=== PATIENT | female | born 1955 | race Caucasian/White ===

== ENCOUNTER → 2023-12-08 | Outpatient (CLI) | payer MEDICARE ==
[~2023-12-08] MED LIST: ALBUHFA IH; BUDE10.2 IH; D-ME118S56 PO; LEVO-70 PO; LOSA50TA64 PO; MONT-39 PO; PRED20TA3 PO
[2023-12-08 17:02] LABS: CREATININE 0.9 mg/dL (0.5-1.0); POTASSIUM 4.3 mmol/L (3.5-5.1)
== END | disposition home or self-care (01) ==
LOC: LAB 13:12
PROVIDERS: ATTEND Internal Medicine Cardiovascular Disease
DX: I10 Essential (primary) hypertension (principal); I51.81 Takotsubo syndrome; E78.5 Hyperlipidemia, unspecified
CPT/HCPCS: 36415; 80048; 80061